=== PATIENT | female | born 1995 | race Caucasian/White ===

== ENCOUNTER → 2016-12-07 | Outpatient (CLI) | payer SELFPAY ==
[2016-12-07 06:20] LABS: Appearance,Urine Cloudy (Clear); Bacteria,Urine Occasional /hpf; Bilirubin,Urine Negative (Negative); Glucose,Urine (UA) Negative (Negative); Ketones,Urine Negative (Negative); Leukocyte Esterase,Urine Large (Negative); Mucus,Urine Occasional /hpf; Nitrite,Urine Negative (Negative); PH, Urine 5.5 (5.0-8.0); Particle Count 10766; Protein,Urine Trace (Negative); RBC,Urine 12 /hpf (0-5); Specific Gravity,Urine 1.023 (1.001-1.035); Squamous Epithelial Cell,Urine 20 /hpf (0-4); UA Billing (MACRO vs. MICRO) MICRO; Urobilinogen,Urine <2.0 mg/dL (<2.0); WBC,Urine 22 /hpf (0-5)
== END ==
LOC: LABMAIN 05:43
PROVIDERS: ATTEND Emergency Medicine
DX: R30.0 Dysuria (principal)
CPT/HCPCS: 81001; 87086

== ENCOUNTER → 2021-12-28 | Outpatient (CLI) | payer OTHER ==
--- NOTE | 2021-12-28 22:41 | US ---
EXAMINATION TYPE: US abdomen complete DATE OF EXAM: 12/28/2021 COMPARISON: CT April 16, 2011 CLINICAL HISTORY: R10.84. Abdominal pain. EXAM MEASUREMENTS: Liver Length: 14.1 cm Gallbladder Wall: 0.18 cm CBD: 0.49 cm Spleen: 9.7 cm Right Kidney: 9.9 x 5.1 x 3.7 cm Left Kidney: 10.5 x 5.5 x 4.9 cm Limited due to overlying bowel gas. Pancreas: Slightly limited due to gas. Liver: Appears to be wnl Gallbladder: Fold visualized. Appears anechoic. Evidence for sonographic Grubbs's sign: No. CBD: Portions seen appear wnl. Spleen: Appears wnl. Right Kidney: No hydronephrosis or masses seen Left Kidney: Appearance of possible column of Randell. Upper IVC: Appears wnl Abd Aorta: Iliacs obscured by gas. No aneurysmal change and visualized abdominal aorta. IVC is seen near the hepatic dome. Slight portio n of pancreas appears within normal limits. Visualized liver is unremarkable. No internal gallstones. No biliary dilatation. Normal-sized spleen. Kidneys symmetric and normal in size without hydronephrosis. IMPRESSION: Slightly suboptimal study. No acute findings are evident.
== END | disposition home or self-care (01) ==
LOC: RADUSWWP 08:08
PROVIDERS: ATTEND Internal Medicine
DX: R10.84 Generalized abdominal pain (principal)
CPT/HCPCS: 76700

== ENCOUNTER 2023-02-08 20:01 | Emergency (ER) | payer OTHER ==
[2023-02-08] MEDS ORDERED: SODIUM CHLORIDE 0.9% 1,000 ML IV STA (21:09)
[2023-02-08 21:41] LABS: Basophils % (A) 0 %; Eosinophils # (A) 0.4 k/uL (0-0.7); Eosinophils % (A) 4 %; HCT 35.6 % (34.0-46.0); HGB 12.4 gm/dL (11.4-16.0); Lymphocytes % (A) 29 %; MCH 31.2 pg (25.0-35.0); MCV 89.3 fL (80.0-100.0); Mean Platelet Volume 7.2; Monocytes # (A) 0.4 k/uL (0-1.0); Monocytes % (A) 4 %; Neutrophils # (A) 6.1 k/uL (1.3-7.7); Neutrophils % (A) 61 %; Platelet Count 295 k/uL (150-450); RBC 3.98 m/uL (3.80-5.40); RDW 12.1 % (11.5-15.5); WBC 10.1 k/uL (3.8-10.6)
[2023-02-08 21:44] LABS: Appearance,Urine Clear (Clear); Bilirubin,Urine Negative (Negative); Blood,Urine Small (Negative); Color,Urine Colorless; Glucose,Urine (UA) Negative (Negative); Ketones,Urine Negative (Negative); Leukocyte Esterase,Urine Negative (Negative); Nitrite,Urine Negative (Negative); Protein,Urine Negative (Negative); RBC,Urine 1 /hpf (0-5); Specific Gravity,Urine 1.002 (1.001-1.035); Squamous Epithelial Cell,Urine 1 /hpf (0-4); Urobilinogen,Urine <2.0 mg/dL (<2.0); WBC,Urine 1 /hpf (0-5)
[2023-02-08 21:51] LABS: Prothrombin Time 10.3 sec (9.0-12.0)
[2023-02-08 21:54] LABS: African American GFR (CKD) >90 (>60 ml/min/1.73 sqM); Anion Gap 12 mmol/L; Blood Urea Nitrogen 5 mg/dL (7-17); Calcium 9.3 mg/dL (8.4-10.2); Carbon Dioxide 21 mmol/L (22-30); Chloride 103 mmol/L (98-107); Glucose 87 mg/dL (74-99); Non-African American GFR(CKD) >90 (>60 ml/min/1.73 sqM); Potassium 3.6 mmol/L (3.5-5.1); Sodium 136 mmol/L (137-145)
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
--- NOTE | 2023-02-08 22:21 | US ---
EXAMINATION TYPE: Transabdominal with transvaginal US OB < 14 wks DATE OF EXAM: 02/08/2023 10:00 PM COMPARISON: NONE CLINICAL INDICATION: Female, 27 years old with history of 6 w preg, vaginal bleeding; spotting once today EXAM PERFORMED: Transvaginal (TV) and Transabdominal (TA) EXAM MEASUREMENTS: GESTATIONAL AGE / DATING Physician Established: Not yet established Dates by LMP: LMP unknown Dates by First Scan: No previous this is first scan Dates by Current Scan for: Unable to date MATERNAL ANATOMY Uterus: 9.2 x 6.9 x 5.6cm Right Ovary: 3.6 x 2.6 x 1.5cm Left Ovary: 3.4 x 2.2 x 1.2cm Post CDS / Adnexa: Trace amount of fluid seen in cul de sac Presence of free fluid: Trace amount Presence of corpus luteal cyst: Possible in rt ov Presence of subchorionic bleed: No GESTATION / SURVEY CRL: Not seen MSD: 1.66cm (6 weeks/0 days) Yolk Sac (normal less than 6mm): Not seen IUP: Gestational sac seen Date of LMP: Unknown Beta HcG (if available): Not available at this time Cystic structure seen in the endometrium possibly representing the gestational sac. IMPRESSION: 1. Anechoic intrauterine cystic structure without evidence for yolk sac or pole at this time. This is thought to represent an early gestational sac with a positive beta hCG, however ectopic and abnormal intrauterine cannot be ruled out based on this exam alone. Follow-up with pelvic ultrasound in 7-10 days and serial beta-hCG studies are recommended to en sure further development of the fetus. GEORGE
[2023-02-08 23:02] VITALS: BP 120/70; PULSE 65; RESP 17; TEMP 97.6
== END 2023-02-08 23:02 | disposition home or self-care (01) ==
LOC: EC 20:01
DX: O20.0 Threatened abortion (principal); O99.511 Diseases of the respiratory system complicating pregnancy, first trimester; O99.331 Smoking (tobacco) complicating pregnancy, first trimester; J45.909 Unspecified asthma, uncomplicated; F12.90 Cannabis use, unspecified, uncomplicated; Z3A.01 Less than 8 weeks gestation of pregnancy
CPT/HCPCS: 36415; 76801; 76817; 80048; 81001; 84702; 85025; 85610; 85730; 86850; 86900; 86901; 96360; 99284

== ENCOUNTER → 2025-02-20 | Outpatient (CLI) | payer OTHER | END | disposition home or self-care (01) | LOC: LABWHC1 15:55 | PROVIDERS: ATTEND Obstetrics & Gynecology | DX: N92.6 Irregular menstruation, unspecified (principal) | CPT/HCPCS: 36415; 84144; 84702; 86850; 86900; 86901 ==

== ENCOUNTER → 2025-04-03 | Outpatient (CLI) | payer OTHER ==
[2025-04-03 15:12] LABS: Basophils # (A) 0.03 X 10*3/uL (0.00-0.10); Basophils % (A) 0.4 %; Eosinophils # (A) 0.24 X 10*3/uL (0.04-0.35); Eosinophils % (A) 3.4 %; HCT 36.3 % (37.2-46.3); HGB 12.0 g/dL (12.0-15.0); Immature Grans, Automated 0.30 %; Lymphocytes # (A) 1.43 X 10*3/uL (0.90-5.00); Lymphocytes % (A) 20.3 %; MCH 30.3 pg (27.0-32.0); MCHC 33.1 g/dL (32.0-37.0); MCV 91.7 FL (80.0-97.0); Monocytes # (A) 0.35 X 10*3/uL (0.20-1.00); Monocytes % (A) 5.0 %; NRBC Per 100 WBC 0 X 10*3/uL (0.00-0.01); Neutrophils # (A) 4.99 X 10*3/uL (1.80-7.70); Neutrophils % (A) 70.6 %; Platelet Count 298 X 10*3/uL (140-440); RBC 3.96 X 10*6/uL (4.10-5.20); RDW 12.6 % (11.5-14.5); WBC 7.06 X 10*3/uL (4.50-10.00)
[2025-04-03 15:40] LABS: Hepatitis B Surface Antigen Nonreactive (Nonreactive); Hepatitis C IgG Antibody Nonreactive (Nonreactive)
[2025-04-03 15:56] LABS: Bilirubin,Urine Negative (Negative); Blood,Urine Negative (Negative); Color,Urine Yellow (Yellow); Ketones,Urine Negative (Negative); Nitrite,Urine Negative (Negative); PH, Urine 7.5; Specific Gravity,Urine 1.008 (1.001-1.030); Urobilinogen,Urine 0.2 E.U./DL
[2025-04-03 19:36] LABS: Urine Alcohol Negative (Negative); Urine Barbiturate Negative (Negative)
[2025-04-03 19:49] LABS: HIV 2 AB Non-Reactive (Non-Reactive); HIV AB P24 Non-Reactive (Non-Reactive); HIV P24 AG Non-Reactive (Non-Reactive)
[2025-04-03 20:59] LABS: Glucose 86.0 mg/dL (70-110); Iron 103.0 UG/DL (50-170); T4, Free (Free Thyroxine) 0.8 ng/dL (0.80-1.80); Total Iron Binding Capacity 357.0 UG/DL (228-460)
[2025-04-04 03:58] LABS: Toxoplasma Antibody (IgG) <3.0 IU/mL (<7.2); Toxoplasma Antibody (IgM) <3.0 AU/mL (<8.0)
== END | disposition home or self-care (01) ==
LOC: LABWHC1 09:07
PROVIDERS: ATTEND Obstetrics & Gynecology
DX: Z11.4 Encounter for screening for human immunodeficiency virus [HIV] (principal); Z11.59 Encounter for screening for other viral diseases; Z11.3 Encounter for screening for infections with a predominantly sexual mode of transmission; Z13.9 Encounter for screening, unspecified; R82.90 Unspecified abnormal findings in urine; R53.83 Other fatigue
CPT/HCPCS: 36415; 80306; 81003; 82306; 82947; 83540; 83550; 84439; 84443; 85025; 86762; 86777; 86778; 86780; 86803; 87086; 87340; 87390